=== PATIENT | male | born 1980 ===

== ENCOUNTER 2024-05-27 11:07 | Outpatient (CLI) | payer OTHER ==
--- NOTE | 2024-05-27 16:45 | Ultrasound Report ---
PROCEDURE: Chest INDICATIONS: CHEST MASS TECHNIQUE: Real-time scanning was performed, and a suitable site was marked by the dope house operator helper for thoracentesis to be performed by the referring clinician. COMPARISON: None. Findings and impression: At the area of clinical concern in the left chest and retroareolar region, possible small degree of g landular tissue is seen. No discrete mass or fluid collection. Differential includes gynecomastia. Clinical followup is recommended. If there is new or worsening clinical concern, reimaging could be o btained with diagnostic mammogram and possible repeat ultrasound. Reviewed by: Antony Meraz MD on 05/27/2024 4:44 PM PDT Approved by: Antony eMraz MD on 05/27/2024 4:44 PM PDT Station ID: [id number]
== END 2024-05-27 11:08 | disposition home or self-care (01) ==
LOC: DI 11:07
PROVIDERS: ATTEND Family Medicine
DX: R22.2 Localized swelling, mass and lump, trunk (principal)